=== PATIENT | female | born 1960 | race Caucasian/White ===

== ENCOUNTER 2024-02-11 16:15 | Emergency (ER) | payer SELFPAY ==
[~2024-02-11 16:15] MED LIST: Iopamidol-370 76% 500 ML MDV (1 ML CHARGE) ONE
[2024-02-11] MEDS ORDERED: levETIRAcetam 500 MG (5 mL) VIAL ONE (17:23)
[2024-02-11] MEDS ORDERED: diphenhydrAMINE 50 MG/ML VIAL ONE (17:24)
[2024-02-11] MEDS ORDERED: Metoclopramide HCl 10 MG (2 mL) VIAL ONE (17:24)
[2024-02-11] MEDS ORDERED: Labetalol HCl 100 MG/20 ML VIAL ONE (17:24)
[2024-02-11 18:29] LABS: #Basophils 0.03 10x3/uL (0.0-0.2); %Basophils 0.4 % (0.0-1.0); %Lymphocytes 38.1 % (21.0-51.0); %Monocytes 7.8 % (0.0-10.0); %Neutrophils 52.4 % (42.0-75.0); Hemoglobin 13.4 g/dL (12.0-16.0); Mean Corpuscular HGB CONC 33.5 g/dL (32.0-36.0); Mean Corpuscular Hemoglobin 28.9 pg (27.0-31.0); Mean Corpuscular Volume 86.4 fL (78.0-98.0); Mean Platelet Volume 10.9 fL (7.4-10.4); Platelet Count 191 10x3/uL (130-400); RBC Distribution Width 14.3 % (11.5-14.5); Red Blood Cell (RBC) Count 4.63 mill/uL (4.20-5.40)
[2024-02-11 18:45] LABS: Prothrombin Time 12.7 sec (12.0-14.7)
[2024-02-11 18:49] LABS: ALT (SGPT) 19 U/L (8-55); AST (SGOT) 17 U/L (5-34); Albumin 2.8 g/dL (3.4-4.8); Alkaline Phosphatase 93 U/L (40-110); Anion Gap 13 mmol/L (10-20); BUN (Urea Nitrogen) 15 mg/dL (9.8-20.1); Bilirubin, Total 0.3 mg/dL (0.2-1.2); Calc. Creatinine Clearance 0 mL/min (70-130); Calcium 8.7 mg/dL (7.8-10.44); Carbon Dioxide 22 mmol/L (23-31); Chloride 105 mmol/L (98-107); Estimated GFR 91; Globulin 2.9 g/dL (2.4-3.5); Glucose 158 mg/dL (80-115); Potassium 3.7 mmol/L (3.5-5.1); Protein, Total 5.7 g/dL (5.8-8.1); Sodium 136 mmol/L (136-145)
[2024-02-11 18:53] LABS: Troponin I 0.025 ng/mL (< 0.028)
[2024-02-11 19:13] LABS: PTT 22.3 sec (22.9-36.1)
[2024-02-11] MEDS ORDERED: Ketorolac Tromethamine 30 MG (1 mL) VIAL ONE (22:21)
== END 2024-02-11 22:46 | disposition home or self-care (01) ==
LOC: ERS 16:15
DX: I10 Essential (primary) hypertension (principal); Z76.0 Encounter for issue of repeat prescription
CPT/HCPCS: 36415; 70496; 70498; 80053; 84484; 85025; 85610; 85730; 93005; 96374; 96375; J1200; J1885; J1953; J2765; Q9967

== ENCOUNTER 2024-03-02 10:05 | Emergency (ER) | payer MEDICARE, SELFPAY ==
[2024-03-02 11:16] LABS: #Basophils Less than 0.03 10x3/uL (0.0-0.2); #Eosinophils Less than 0.03 10x3/uL (0.0-0.7); %Basophils 0.2 % (0.0-1.0); %Eosinophils 0.2 % (0.0-10.0); %Lymphocytes 22.8 % (21.0-51.0); %Monocytes 8.5 % (0.0-10.0); %Neutrophils 67.8 % (42.0-75.0); Hematocrit 35.5 % (36.0-47.0); Hemoglobin 12.1 g/dL (12.0-16.0); Mean Corpuscular HGB CONC 34.1 g/dL (32.0-36.0); Mean Corpuscular Hemoglobin 28.9 pg (27.0-31.0); Mean Corpuscular Volume 84.7 fL (78.0-98.0); Mean Platelet Volume 10.5 fL (7.4-10.4); Platelet Count 163 10x3/uL (130-400); RBC Distribution Width 13.7 % (11.5-14.5); Red Blood Cell (RBC) Count 4.19 mill/uL (4.20-5.40)
[2024-03-02 11:39] LABS: ALT (SGPT) 55 U/L (8-55); AST (SGOT) 47 U/L (5-34); Albumin 3.3 g/dL (3.4-4.8); Alkaline Phosphatase 118 U/L (40-110); Anion Gap 15 mmol/L (10-20); BUN (Urea Nitrogen) 19 mg/dL (9.8-20.1); Bilirubin, Total 0.3 mg/dL (0.2-1.2); Calc. Creatinine Clearance 0 mL/min (70-130); Calcium 8.6 mg/dL (7.8-10.44); Carbon Dioxide 25 mmol/L (23-31); Chloride 103 mmol/L (98-107); Estimated GFR 51; Globulin 3.4 g/dL (2.4-3.5); Glucose 244 mg/dL (80-115); Lipase 105 U/L (8-78); Potassium 4.1 mmol/L (3.5-5.1); Protein, Total 6.7 g/dL (5.8-8.1); Sodium 139 mmol/L (136-145)
[2024-03-02 12:35] LABS: Bacteria/HPF None Seen HPF (None Seen); Bilirubin Negative (Negative); Blood, Urine 1+ (Negative); CAUTI Indications for Culture Dysuria,urgency,freq; Clarity Extra Turbid (Clear); Glucose, Urine (Dipstick) Greater than 1000 mg/dL (Negative); Ketone, Urine Negative (Negative); Leukocyte 500 Leu/uL (Negative); Nitrite Negative (Negative); Protein, Urine (Dipstick) 30 mg/dL (Neg-Trace); RBC/HPF 21-50 HPF (0-3); Specific Gravity, Urine 1.003 (1.002-1.036); Squamous Epithelial None Seen HPF (0-3); Urobilinogen Normal mg/dL (Less than 2); WBC/HPF Greater than 50 HPF (0-3); pH, Urine 6.5 (5.0-9.0)
[2024-03-02 12:36] LABS: Urine Culture Reflex Yes Yes
[2024-03-02 14:14] LABS: Lactic Acid 1.87 mmol/L (0.5-2.2)
[2024-03-02] MEDS ORDERED: Sodium Chloride 0.9% 100 ML ONE (15:53)
[2024-03-02] MEDS ORDERED: LevoFLOXacin 750 mg/D5W 150 ml Premix Bag ONE (15:53)
[2024-03-02] MEDS ORDERED: cefTRIAXone (ROCEPHIN) 1 GM VIAL ONE (15:53)
== END 2024-03-02 18:29 | disposition home or self-care (01) ==
LOC: ERS 10:05
DX: N39.0 Urinary tract infection, site not specified (principal); R10.9 Unspecified abdominal pain; E11.9 Type 2 diabetes mellitus without complications; Z86.73 Personal history of transient ischemic attack (TIA), and cerebral infarction without residual deficits; Z79.899 Other long term (current) drug therapy
CPT/HCPCS: 74177; 80053; 81001; 83605; 83690; 85025; 87086; J0696; J1956; 36415; 96365; 96367; Q9967